=== PATIENT | male | born 1985 | race Caucasian/White ===

== ENCOUNTER 2017-03-04 22:04 | Emergency (ER) | payer SELFPAY ==
[~2017-03-04] VITALS: Ht 167.6 cm; Wt 65.0 kg
[2017-03-04] MEDS ORDERED: SEVE400 PO (22:07)
[2017-03-04] MEDS ORDERED: MINO2.5 PO (22:07)
[2017-03-04] MEDS ORDERED: CARV3 PO (22:07)
[2017-03-04] MEDS ORDERED: HYDR10TA31 PO (22:07)
[2017-03-04 22:50] VITALS: BP 144/89
== END 2017-03-04 22:51 | disposition home or self-care (01) ==
LOC: EMS 22:06
DX: N99.821 Postprocedural hemorrhage of a genitourinary system organ or structure following other procedure (principal); Z99.2 Dependence on renal dialysis; F17.210 Nicotine dependence, cigarettes, uncomplicated; I10 Essential (primary) hypertension; N28.9 Disorder of kidney and ureter, unspecified
CPT/HCPCS: 99281

== ENCOUNTER 2017-03-05 19:18 | Emergency (ER) | payer SELFPAY ==
[~2017-03-05] VITALS: Ht 167.6 cm; Wt 65.0 kg
[~2017-03-05 19:18] MED LIST: CARV3 PO; HYDR10TA31 PO; MINO2.5 PO; SEVE400 PO
[2017-03-05 20:48] VITALS: BP 155/95
== END 2017-03-05 21:28 | disposition home or self-care (01) ==
LOC: EMS 19:19
DX: T85.611A Breakdown (mechanical) of intraperitoneal dialysis catheter, initial encounter (principal); F17.210 Nicotine dependence, cigarettes, uncomplicated; I10 Essential (primary) hypertension; Z99.2 Dependence on renal dialysis; Y81.2 Prosthetic and other implants, materials and accessory general- and plastic-surgery devices associated with adverse incidents
CPT/HCPCS: 99282; 99406

== ENCOUNTER 2024-04-10 16:50 | Inpatient (IN) | payer MEDICAID, OTHER ==
[~2024-04-10] VITALS: Ht 167.6 cm; Wt 65.4 kg
[2024-04-10 17:00] VITALS: TEMP 98.8
[2024-04-10 17:09] LABS: EOSINOPHILS % (AUTO) 3.8 % (1.0-6.0); HEMATOCRIT 38.1 % (41-53); HEMOGLOBIN 11.9 g/dL (13.5-17.5); LYMPHOCYTES # (AUTO) 0.9 K/uL (1.0-4.8); LYMPHOCYTES % (AUTO) 16.1 % (22.0-44.0); MEAN CORPUSCULAR HGB CONC 31.3 G/dL (31.0-37.0); MEAN CORPUSCULAR VOLUME 96 fL (80-100); MONOCYTES # (AUTO) 0.7 K/uL (0.1-1.0); MONOCYTES % (AUTO) 12.5 % (2.0-9.0); NEUTROPHILS # (AUTO) 3.8 K/uL (1.8-7.7); NEUTROPHILS % (AUTO) 65.6 % (40.0-70.0); PLATELET COUNT (AUTO) 156 K/uL (150-450); RED BLOOD CELL COUNT(AUTO) 3.96 MIL/uL (4.50-5.90); RED CELL DISTRIBUTION WIDTH 20.3 % (11.5-14.5); WHITE BLOOD COUNT (AUTO) 5.8 K/uL (4.5-11.0)
[2024-04-10] MEDS ORDERED: SACU1TAB4 PO (17:11)
[2024-04-10] MEDS ORDERED: LEVE-71 PO (17:11)
[2024-04-10] MEDS ORDERED: CARV25TA32 PO (17:11)
[2024-04-10] MEDS ORDERED: APIX5TAB PO (17:11)
[2024-04-10] MEDS ORDERED: CLON-353 PO (17:11)
[2024-04-10] MEDS ORDERED: CINA90TA4 PO (17:11)
[2024-04-10] MEDS ORDERED: PHOSLOC PO (17:11)
[2024-04-10] MEDS: AMIODARONE HCL 150 MG in DEXTROSE 5%-WATER 97 ML IV ONE (17:11)
[2024-04-10] MEDS ORDERED: AMLO10TA55 PO (17:11)
[2024-04-10] MEDS ORDERED: SACU1TAB PO (17:11)
[2024-04-10] MEDS ORDERED: CALC0.253 PO (17:11)
[2024-04-10] MEDS ORDERED: SUCR500T PO (17:11)
[2024-04-10] MEDS ORDERED: AMIO400T4 PO (17:11)
[2024-04-10] MEDS ORDERED: HYDR100T15 PO (17:11)
[2024-04-10 17:22] LABS: INR 1.1 (0.9-1.1); PROTHROMBIN TIME 11.7 SEC (9.4-11.6)
[2024-04-10 17:26] LABS: TROPONIN I-HIGH SENSITIVITY 36 ng/L (<76)
[2024-04-10 17:32] LABS: CALCIUM, TOTAL 9.3 mg/dL (8.8-10.5); CREATININE 6.78 mg/dL (0.60-1.30); POTASSIUM 4.4 mmol/L (3.5-5.1)
[2024-04-10] MEDS: AMIODARONE HCL 360 MG in DEXTROSE 5%-WATER 242.8 ML IV ONE (17:36)
[2024-04-10 17:40] LABS: ALBUMIN 4.2 g/dL (3.4-5.0); BILIRUBIN,TOTAL 0.6 mg/dL (0.1-1.0); TOTAL PROTEIN, SERUM 7.4 g/dL (6.4-8.2)
[2024-04-10 19:40] VITALS: BP 153/94; PULSE 84; RESP 24; O2SAT 94
[2024-04-10] MEDS ORDERED: ACETAMINOPHEN 325 MG TABLET PO PRN (19:45)
[2024-04-10] MEDS ORDERED: HYDROCODONE/ACETAMINOPHEN 5-325 MG TABLET PO PRN (19:45)
[2024-04-10] MEDS ORDERED: BISACODYL 10 MG RECTAL RECTAL SUPPOSITORY PR PRN (19:45)
[2024-04-10] MEDS ORDERED: ONDANSETRON HCL 4 MG/2 ML VIAL IVP PRN (19:45)
[2024-04-10] MEDS ORDERED: ZOLPIDEM TARTRATE 5 MG TABLET PO PRN (19:45)
[2024-04-10] MEDS ORDERED: MORPHINE SULFATE 2 MG/ML SYRINGE IVP PRN (19:45)
[2024-04-10] MEDS ORDERED: MAGNESIUM HYDROXIDE SUSPENSION 30 ML UDCUP PO PRN (19:45)
[2024-04-10] MEDS: DOCUSATE SODIUM 100 MG CAPSULE PO SCH (21:00)
[2024-04-10] MEDS: CloNIDine HCL 0.2 MG TABLET PO SCH (21:23)
[2024-04-10] MEDS: APIXABAN 5 MG TABLET PO SCH (21:24)
[2024-04-10] MEDS: CARVEDILOL 12.5 MG TABLET PO SCH (21:24)
[2024-04-10] MEDS: SACUBITRIL/VALSARTAN 97-103 MG TABLET PO SCH (21:24)
[2024-04-10] MEDS ORDERED: AMIODARONE HCL 540 MG in DEXTROSE 5%-WATER 239.2 ML IV ONE (23:00)
[2024-04-11] MEDS ORDERED: CALCIUM ACETATE 667 MG CAPSULE PO SCH (08:00)
[2024-04-11] MEDS ORDERED: AmLODIPine BESYLATE 10 MG TABLET PO SCH (09:00)
[2024-04-11] MEDS ORDERED: CALCITRIOL 0.25 MCG CAPSULE PO SCH (09:00)
[2024-04-11] MEDS ORDERED: LevETIRAcetam 500 MG TABLET PO SCH (09:00)
[2024-04-11] MEDS ORDERED: PANTOPRAZOLE SODIUM 40 MG DR TABLET PO SCH (09:00)
[2024-04-11] MEDS ORDERED: AMIODARONE HCL 750 MG in DEXTROSE 5%-WATER 485 ML IV SCH (17:00)
== END 2024-04-10 21:52 | disposition left against medical advice (07) | DRG 201 ==
LOC: EMS 16:50 → EDH 19:45
PROVIDERS: ADMIT Internal Medicine; ATTEND Internal Medicine
DX: I48.20 Chronic atrial fibrillation, unspecified (principal); D68.59 Other primary thrombophilia; I12.0 Hypertensive chronic kidney disease with stage 5 chronic kidney disease or end stage renal disease; N18.6 End stage renal disease; D63.8 Anemia in other chronic diseases classified elsewhere; Z53.21 Procedure and treatment not carried out due to patient leaving prior to being seen by health care provider; F32.A Depression, unspecified; Z79.01 Long term (current) use of anticoagulants; Z87.891 Personal history of nicotine dependence; Z88.1 Allergy status to other antibiotic agents; Z99.2 Dependence on renal dialysis; G40.909 Epilepsy, unspecified, not intractable, without status epilepticus
CPT/HCPCS: 71045; 80053; 82550; 83880; 84484; 85025; 85610; 85730; 99285; G0378; J0282; J7060; 36415-L1; 36415-TC